=== PATIENT | male | born 1950 | race Caucasian/White ===

== ENCOUNTER → 2018-04-05 | Outpatient (CLI) | payer MEDICARE ==
--- NOTE | 2018-04-05 11:16 | CT ---
EXAMINATION TYPE: CT sinus wo con DATE OF EXAM: 04/05/2018 COMPARISON: None HISTORY: Chronic sinusitis CT DLP: 639 mGycm. Automated Exposure Control for Dose Reduction was Utilized. TECHNIQUE: CT scan of the sinuses is performed without contrast, axial images are obtained, coronal r eformatted images are also reviewed. FINDINGS: Left maxillary sinus shows some periosteal thickening. Ostiomeatal units are patent. No air -fluid levels. Bone mineralization is maintained. Orbits show symmetric appearance. Visualized portion of mastoid air cells show no abnormal opacification on the right, limited inflamma tory change in the left. The globes are intact bilaterally. 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
== END | disposition home or self-care (01) ==
LOC: RADCTMAIN 09:23
PROVIDERS: ATTEND Otolaryngology
DX: J32.9 Chronic sinusitis, unspecified (principal)
CPT/HCPCS: 70486

== ENCOUNTER → 2021-07-15 | Outpatient (CLI) | payer MEDICARE ==
--- NOTE | 2021-07-15 11:46 | XR ---
EXAMINATION TYPE: XR lumbar spine 3V AP view pelvis and 2 views left hip DATE OF EXAM: 07/15/2021 Comparison: None Clinical History: 71-year-old male M25.552 pain l hip Findings: Lumbar spine: Dextroconvex scoliotic curvature. Mild to moderate multilevel degenerative disc disease with disc bul ging and endplate spondylosis throughout. There appears to be a transitional lumbosacral segment richard sariah as a lumbarized S1. Facet arthropathy mid to lower lumbar spine. Vertebral body heights are prese rved and alignment is maintained. Pelvis and left hip: Mild marginal spurring at the bilateral hips appears relatively symmetrical. No acute fracture, sublu xation, dislocation. Pelvic phlebolith on the left. Impression: Lumbar spine: 1. A mild dextroconvex scoliosis of the lumbar spine. 2. 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 3. Mild to moderate multilevel degenerative disc disease. Facet arthropathy mid to lower lumbar spine . 4. No vertebral compression collapse or malalignment. Pelvis and left hip: 1. Similar mild degenerative spurring on both sides. 2. No acute osseous abnormality seen.
== END | disposition home or self-care (01) ==
LOC: RADXRMAIN 10:39
PROVIDERS: ATTEND Internal Medicine
DX: M51.36 Other intervertebral disc degeneration, lumbar region (principal); M46.96 Unspecified inflammatory spondylopathy, lumbar region
CPT/HCPCS: 72100; 73502

== ENCOUNTER 2023-02-12 23:54 | Observation (INO) | payer MEDICARE ==
--- NOTE | 2023-02-13 00:27 | XR ---
EXAMINATION TYPE: XR chest 2V DATE OF EXAM: 02/13/2023 COMPARISON: None INDICATION: Chest pain, short of breath TECHNIQUE: Frontal and lateral views of the chest are obtained. FINDINGS: The heart size is normal. The pulmonary vasculature is normal. The lungs are clear. There is elevation of the right diaphragm. IMPRESSION: 1. No acute pulmonary process.
--- NOTE | 2023-02-13 00:29 | ED ---
General Adult HPI - General Chief complaint: Shortness of Breath Stated complaint: Chest Pain,SOB Time Seen by Provider: 02/13/23 00:01 Source: patient, RN notes reviewed, old records reviewed Mode of arrival: wheelchair Limitations: no limitations - History of Present Illness Initial comments: 72-year-old male presenting for evaluation of cough and dyspnea. Patient has had a productive cough for the past several weeks. He was started on antibiotics 5 days prior, is azithromycin. He has failed to improve. He does associate some chest pain with this symptoms which is worse with cough. 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 He denies measured fever. Denies lower extremity pain or swelling. No prior history of asthma or COPD. - Related Data Allergies Allergy/AdvReac Type Severity Reaction Status Date / Time No Known Allergies Allergy Verified 02/13/23 00:01 Review of Systems ROS Statement: Those systems with pertinent positive or pertinent negative responses have been documented in the HPI. ROS Other: All systems not noted in ROS Statement are negative. Past Medical History Past Medical History: Atrial Fibrillation, CVA/TIA, Hypertension Additional Past Medical History / Comment(s): DVT History of Any Multi-Drug Resistant Organisms: None Reported Past Surgical History: No Surgical Hx Reported Past Psychological History: No Psychological Hx Reported Smoking Status: Never smoker Past Alcohol Use History: Daily Past Drug Use History: None Reported General Exam Limitations: no limitations General appearance: alert, in no apparent distress Head exam: Present: atraumatic, normocephalic Eye exam: Present: normal appearance, PERRL Neck exam: Present: normal inspection. Absent: tenderness, meningismus Respiratory exam: Present: rhonchi, decreased breath sounds, other (Wet cough). Absent: respiratory distress, wheezes, rales Cardiovascular Exam: Present: regular rate, normal rhythm GI/Abdominal exam: Present: soft. Absent: distended, tenderness, guarding Extremities exam: Present: normal inspection, normal capillary refill. Absent: calf tenderness Neurological exam: Present: alert, oriented X3, CN II-XII intact. Absent: motor sensory deficit Psychiatric exam: Present: normal affect, normal mood Skin exam: Present: warm, dry, intact. Absent: cyanosis, diaphoretic Course Vital Signs 02/12/23 02/13/23 02/13/23 23:57 00:11 00:32 Temperature 97.5 F L Pulse Rate 85 Respiratory 24 20 Rate Blood Pressure 126/72 O2 Sat by Pulse 88 L 91 L Oximetry 02/13/23 02/13/23 02/13/23 02:11 02:24 03:00 Temperature Pulse Rate 87 81 85 Respiratory 18 Rate Blood Pressure 127/67 O2 Sat by Pulse 97 93 L Oximetry Medical Decision Making - Medical Decision Making Was pt. sent in by a medical professional or institution (, PA, ADVANCED QUALITY ENGINEER, urgent care, hospital, or shelter...) When possible be specific @ -No Did you speak to anyone other than the patient for history (EMS, parent, family, police, friend...)? What history was obtained from this source @ -No Did you review nursing and triage notes (agree or disagree)? Why? @ -I reviewed and agree with nursing and triage notes Were old charts reviewed (outside hosp., previous admission, EMS record, old EKG, old radiological studies, urgent care reports/EKG's, shelter records)? Report findings @ -No old charts were reviewed Differential Diagnosis (chest pain, altered mental status, abdominal pain women, abdominal pain men, vaginal bleeding, weakness, fever, dyspnea, syncope, headache, dizziness, GI bleed, back pain, seizure, CVA, palpatations, mental health, musculoskeletal)? @ -[Differential Dyspnea: Coronary syndrome, arrhythmia, tamponade, asthma, COPD, pulmonary embolism, pneumonia, pneumothorax, pulmonary effusion, anaphylaxis, diabetic ketoacidosis, flailed chest, pulmonary contusion, diaphragmatic rupture, anemia, neuromuscular, this is not meant to be an all-inclusive list. EKG interpreted by me (3pts min.). @ -EKG: Sinus rhythm left axis deviation, rate of 82, MS interval 157, QRS duration 88, QTC 409, no ST segment elevation. X-rays interpreted by me (1pt min.). @ -Chest x-ray shows elevation of the right hemidiaphragm. CT interpreted by me (1pt min.). @ -CT angiography negative for PE but does show airspace disease consistent with pneumonia. U/S interpreted by me (1pt. min.). @ -None done What testing was considered but not performed or refused? (CT, X-rays, U/S, labs)? Why? @ -None What meds were considered but not given or refused? Why? @ -None Did you discuss the management of the patient with other professionals (professionals i.e. DrMaryana, PA, ADVANCED QUALITY ENGINEER, lab, RT, psych nurse, case management social worker, roll up guider operator, teacher, animal control officer, machine adjuster leader case trim)? Give summary @ -Dr. Armendariz Was smoking cessation discussed for >3mins.? @ -No Was critical care preformed (if so, how long)? @ -No Were there social determinants of health that impacted care today? How? (Homelessness, low income, unemployed, alcoholism, drug addiction, transportation, low edu. Level, literacy, decrease access to med. care, fci, rehab)? @ -No Was there de-escalation of care discussed even if they declined (Discuss DNR or withdrawal of care, Hospice)? DNR status @ -No What co-morbidities impacted this encounter? (DM, HTN, Smoking, COPD, CAD, Cancer, CVA, ARF, Chemo, Hep., AIDS, mental health diagnosis, sleep apnea, morbi d obesity)? @ Atrial fibrillation Was patient admitted / discharged? Hospital course, mention meds given and route, prescriptions, significant lab abnormalities, going to OR and other pertinent info. @ 72-year-old male with cough, dyspnea, clinical pneumonia. X-ray negative for focal airspace disease, no pneumothorax, mild leukocytosis. Otherwise laboratory testing is unremarkable. His INR is supratherapeutic, Coumadin will be held at this time. CT does show airspace disease consistent with pneumonia. Patient started on IV antibiotics, steroids, and nebulized albuterol. Undiagnosed new problem with uncertain prognosis? @ -No Drug Therapy requiring intensive monitoring for toxicity (Heparin, Nitro, Insulin, Cardizem)? @ -No Were any procedures done? @ -No Diagnosis/symptom? @ Pneumonia failed outpatient treatment, hypoxia Acute, or Chronic, or Acute on Chronic? @ -Acute Uncomplicated (without systemic symptoms) or Complicated (systemic symptoms)? @ -default Side effects of treatment? @ -No Exacerbation, Progression, or Severe Exacerbation? @ -No Poses a threat to life or bodily function? How? (Chest pain, USA, PR, pneumonia, PE, COPD, DKA, ARF, appy, cholecystitis, CVA, Diverticulitis, Homicidal, S uicidal, threat to staff... and all critical care pts) @ -yES, hypoxia, sepsis - Lab Data Result diagrams: 02/13/23 00:20 02/13/23 00:20 Lab Results 02/13/23 02/13/23 02/13/23 Range/Units 00:20 00:20 00:20 WBC 10.9 H (3.8-10.6) k/uL RBC 4.55 (4.30-5.90) m/uL Hgb 14.6 (13.0-17.5) gm/dL Hct 44.7 (39.0-53.0) % MCV 98.2 (80.0-100.0) fL MCH 32.0 (25.0-35.0) pg MCHC 32.6 (31.0-37.0) g/dL RDW 12.7 (11.5-15.5) % Plt Count 177 (150-450) k/uL MPV 9.3 Neutrophils % 78 % Lymphocytes % 13 % Monocytes % 5 % Eosinophils % 2 % Basophils % 0 % Neutrophils # 8.5 H (1.3-7.7) k/uL Lymphocytes # 1.5 (1.0-4.8) k/uL Monocytes # 0.5 (0-1.0) k/uL Eosinophils # 0.2 (0-0.7) k/uL Basophils # 0.0 (0-0.2) k/uL PT 43.0 H (9.0-12.0) sec INR 4.4 H (<1.2) APTT 28.4 (22.0-30.0) sec Sodium 136 L (137-145) mmol/L Potassium 3.9 (3.5-5.1) mmol/L Chloride 102 (98-107) mmol/L Carbon Dioxide 24 (22-30) mmol/L Anion Gap 10 mmol/L BUN 21 H (9-20) mg/dL Creatinine 0.98 (0.66-1.25) mg/dL Est GFR (CKD-EPI)AfAm 88 (>60 ml/min/1.73 sqM) Est GFR (CKD-EPI)NonAf 76 (>60 ml/min/1.73 sqM) Glucose 136 H (74-99) mg/dL Plasma Lactic Acid Delvis (0.7-2.0) mmol/L Calcium 9.2 (8.4-10.2) mg/dL Magnesium 1.9 (1.6-2.3) mg/dL Total Bilirubin 0.4 (0.2-1.3) mg/dL AST 36 (17-59) U/L ALT 36 (4-49) U/L Alkaline Phosphatase 42 (38-126) U/L Troponin I (0.000-0.034) ng/mL NT-Pro-B Natriuret Pep pg/mL Total Protein 6.7 (6.3-8.2) g/dL Albumin 3.9 (3.5-5.0) g/dL Influenza Type A (PCR) (Not Detectd) Influenza Type B (PCR) (Not Detectd) RSV (PCR) (Not Detectd) SARS-CoV-2 (PCR) (Not Detectd) 02/13/23 02/13/23 02/13/23 Range/Units 00:20 00:20 00:27 WBC (3.8-10.6) k/uL RBC (4.30-5.90) m/uL Hgb (13.0-17.5) gm/dL Hct (39.0-53.0) % MCV (80.0-100.0) fL MCH (25.0-35.0) pg MCHC (31.0-37.0) g/dL RDW (11.5-15.5) % Plt Count (150-450) k/uL MPV Neutrophils % % Lymphocytes % % Monocytes % % Eosinophils % % Basophils % % Neutrophils # (1.3-7.7) k/uL Lymphocytes # (1.0-4.8) k/uL Monocytes # (0-1.0) k/uL Eosinophils # (0-0.7) k/uL Basophils # (0-0.2) k/uL PT (9.0-12.0) sec INR (<1.2) APTT (22.0-30.0) sec Sodium (137-145) mmol/L Potassium (3.5-5.1) mmol/L Chloride (98-107) mmol/L Carbon Dioxide (22-30) mmol/L Anion Gap mmol/L BUN (9-20) mg/dL Creatinine (0.66-1.25) mg/dL Est GFR (CKD-EPI)AfAm (>60 ml/min/1.73 sqM) Est GFR (CKD-EPI)NonAf (>60 ml/min/1.73 sqM) Glucose (74-99) mg/dL Plasma Lactic Acid Delvis 1.7 (0.7-2.0) mmol/L Calcium (8.4-10.2) mg/dL Magnesium (1.6-2.3) mg/dL Total Bilirubin (0.2-1.3) mg/dL AST (17-59) U/L ALT (4-49) U/L Alkaline Phosphatase (38-126) U/L Troponin I <0.012 (0.000-0.034) ng/mL NT-Pro-B Natriuret Pep 141 pg/mL Total Protein (6.3-8.2) g/dL Albumin (3.5-5.0) g/dL Influenza Type A (PCR) (Not Detectd) Influenza Type B (PCR) (Not Detectd) RSV (PCR) (Not Detectd) SARS-CoV-2 (PCR) (Not Detectd) 02/13/23 Range/Units 00:27 WBC (3.8-10.6) k/uL RBC (4.30-5.90) m/uL Hgb (13.0-17.5) gm/dL Hct (39.0-53.0) % MCV (80.0-100.0) fL MCH (25.0-35.0) pg MCHC (31.0-37.0) g/dL RDW (11.5-15.5) % Plt Count (150-450) k/uL MPV Neutrophils % % Lymphocytes % % Monocytes % % Eosinophils % % Basophils % % Neutrophils # (1.3-7.7) k/uL Lymphocytes # (1.0-4.8) k/uL Monocytes # (0-1.0) k/uL Eosinophils # (0-0.7) k/uL Basophils # (0-0.2) k/uL PT (9.0-12.0) sec INR (<1.2) APTT (22.0-30.0) sec Sodium (137-145) mmol/L Potassium (3.5-5.1) mmol/L Chloride (98-107) mmol/L Carbon Dioxide (22-30) mmol/L Anion Gap mmol/L BUN (9-20) mg/dL Creatinine (0.66-1.25) mg/dL Est GFR (CKD-EPI)AfAm (>60 ml/min/1.73 sqM) Est GFR (CKD-EPI)NonAf (>60 ml/min/1.73 sqM) Glucose (74-99) mg/dL Plasma Lactic Acid Delvis (0.7-2.0) mmol/L Calcium (8.4-10.2) mg/dL Magnesium (1.6-2.3) mg/dL Total Bilirubin (0.2-1.3) mg/dL AST (17-59) U/L ALT (4-49) U/L Alkaline Phosphatase (38-126) U/L Troponin I (0.000-0.034) ng/mL NT-Pro-B Natriuret Pep pg/mL Total Protein (6.3-8.2) g/dL Albumin (3.5-5.0) g/dL Influenza Type A (PCR) Not Detected (Not Detectd) Influenza Type B (PCR) Not Detected (Not Detectd) RSV (PCR) Not Detected (Not Detectd) SARS-CoV-2 (PCR) Not Detected (Not Detectd) Disposition Clinical Impression: Community acquired pneumonia, Hypoxia Disposition: ADMITTED IP TO THIS HOSP Condition: Stable Time of Disposition: 03:23
[2023-02-13 00:49] LABS: Basophils % (A) 0 %; Eosinophils # (A) 0.2 k/uL (0-0.7); Eosinophils % (A) 2 %; HCT 44.7 % (39.0-53.0); HGB 14.6 gm/dL (13.0-17.5); Lymphocytes # (A) 1.5 k/uL (1.0-4.8); Lymphocytes % (A) 13 %; MCHC 32.6 g/dL (31.0-37.0); MCV 98.2 fL (80.0-100.0); Mean Platelet Volume 9.3; Monocytes # (A) 0.5 k/uL (0-1.0); Monocytes % (A) 5 %; Neutrophils # (A) 8.5 k/uL (1.3-7.7); Neutrophils % (A) 78 %; Platelet Count 177 k/uL (150-450); RBC 4.55 m/uL (4.30-5.90); RDW 12.7 % (11.5-15.5); WBC 10.9 k/uL (3.8-10.6)
[2023-02-13 00:59] LABS: INR 4.4 (<1.2); Partial Thromboplastin Time 28.4 sec (22.0-30.0)
[2023-02-13 01:06] LABS: Albumin 3.9 g/dL (3.5-5.0); Calcium 9.2 mg/dL (8.4-10.2); Magnesium 1.9 mg/dL (1.6-2.3); Potassium 3.9 mmol/L (3.5-5.1); Total Bilirubin 0.4 mg/dL (0.2-1.3); Total Protein 6.7 g/dL (6.3-8.2)
[2023-02-13] MEDS ORDERED: AZITHROMYCIN 500 MG in SODIUM CHLORIDE 0.9% 250 ML IVPB STA (01:35)
[2023-02-13] MEDS ORDERED: methylPREDNISolone SOD SUCCI 125 MG/2 ML VIAL IV STA (01:36)
[2023-02-13] MEDS ORDERED: ALBUTEROL NEBULIZED 2.5 MG/3 ML INHALATION STA (01:36)
[2023-02-13] MEDS ORDERED: IPRATROPIUM-ALBUTEROL 3 ML NEB INHALATION STA (01:36)
[2023-02-13] MEDS ORDERED: NALOXONE 0.4 MG/ML 1 ML VIAL IV PRN (01:39)
[2023-02-13] MEDS ORDERED: ACETAMINOPHEN TAB 325 MG TAB PO PRN (01:39)
[2023-02-13] MEDS: SODIUM CHLORIDE 0.9% 1,000 ML IV SCH ×3 (02:24→23:53)
[2023-02-13] MEDS ORDERED: LORazepam 2 MG/ML INJ IV PRN ×3 (02:54)
[2023-02-13] MEDS ORDERED: THIAMINE 100 MG/ML 2 ML VIAL IM STA (02:54)
--- NOTE | 2023-02-13 03:16 | CT ---
EXAM: CT Angiography Chest With Intravenous Contrast CLINICAL HISTORY: ITS.REASON CT Reason: KARO TECHNIQUE: Axial computed tomographic angiography images of the chest with intravenous contrast. CTDI is 29 mGy and DLP is 919.6 mGy-cm. This CT exam was performed using one or more of the following dose reduction techniques: automated exposure control, adjustment of the mA and/or kV according to patient size, and/or use of iterative reconstruction technique. 2D MIP reconstructed images were created and reviewed. COMPARISON: No relevant prior studies available. FINDINGS: Limitations: Exam severely limited secondary to patient respiratory motion. Pulmonary arteries: This precludes evaluation of the subsegmental pulmonary arteries. No large central pulmonary embolus is present. Aorta: No acute findings. No thoracic aortic aneurysm. Lungs: Patchy interstitial infiltrates within the right upper and to a lesser extent right lower lobes . No mass. Pleural space: Unremarkable. No significant effusion. No pneumothorax. Heart: Unremarkable. No cardiomegaly. No significant pericardial effusion. No evidence of RV dysfunction. Bones/joints: No acute fracture. No dislocation. Soft tissues: fatty infiltration of the liver. Lymph nodes: Unremarkable. No enlarged lymph nodes. Kidneys and ureters: 2.1 cm left renal cyst. IMPRESSION: Limited exam as described above. No large central pulmonary embolus Reducers were infiltrated with of the right lobe likely infectious or inflammatory etiology.
[2023-02-13] MEDS: ALBUTEROL NEBULIZED 2.5 MG/3 ML INHALATION SCH ×3 (06:22→11:07)
[2023-02-13] MEDS: methylPREDNISolone SOD SUCCI 125 MG/2 ML VIAL IV SCH ×3 (08:12→23:52)
[2023-02-13] MEDS: IPRATROPIUM-ALBUTEROL 3 ML NEB INHALATION SCH ×3 (11:29→19:18)
--- NOTE | 2023-02-13 12:33 | P.CNPUL ---
History of Present Illness Consult date: 02/13/23 Requesting physician: Uche Armendariz Reason for consult: dyspnea, cough, pneumonia, abnormal CXR/CT Chief complaint: Shortness of breath and cough. History of present illness: Pulmonary consult dated 02/13/2023. 72-year-old male who presents to the emergency department on February 12, complaining of shortness of breath and cough. She has been going on for 2 weeks, and has been progressive. The patient states that he is producing a small amount of yellow phlegm. There is no fever or chills. There is no chest pain or chest discomfort. The patient does have a previous history of hypertension, pulmonary embolism, CVA, and DVT. He did smoke for about 10 years, many years back. 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 The patient had a chest x-ray that was normal. A CAT scan was done, and was negative for pulmonary embolism, but did show some very mild perihilar infiltrate. Hence, the patient was admitted for diagnosis of pneumonia. He is currently on azithromycin, and Rocephin. He's not requ iring any oxygen. He's not getting any IV fluids. White count 10.9, with a normal hemoglobin, hematocrit, and platelet count. PT 43, INR 4.4. Sodium 136, potassium 3.9, chlorides 102, CO2 24, BUN 21, and creatinine 0.98. N-terminal proBNP was normal. Troponin was negative. Testing for influenza A, influenza B, as well as respiratory syncytial virus, and coronavirus were negative. I've added a pro-calcitonin level. Review of Systems REVIEW OF SYSTEMS: CONSTITUTIONAL: [Negative.] NEUROLOGIC: [ Negative.] HEENT: [ Negative.] CARDIAC: [Negative.] PULMONARY: Shortness of breath, cough, and minimal yellow phlegm production. GI: [Negative.] : [Negative.] RHEUMATOLOGIC: [ Negative.] IMMUNOLOGIC: [ Negative.] ENDOCRINE: [Negative. ] DERMATOLOGIC: [Negative.] Past Medical History Past Medical History: Atrial Fibrillation, CVA/TIA, Hypertension Additional Past Medical History / Comment(s): DVT History of Any Multi-Drug Resistant Organisms: None Reported Past Surgical History: No Surgical Hx Reported Past Psychological History: No Psychological Hx Reported Smoking Status: Never smoker Past Alcohol Use History: Daily Past Drug Use History: None Reported Medications and Allergies Allergies Allergy/AdvReac Type Severity Reaction Status Date / Time No Known Allergies Allergy Verified 02/13/23 00:01 Physical Exam Osteopathic Statement: *. No significant issues noted on an osteopathic structural exam other than those noted in the History and Physical/Consult. Vitals: Vital Signs Temp Pulse Pulse Resp BP BP Pulse Ox 02/13/23 11:16 80 02/13/23 11:07 80 02/13/23 07:44 99.2 F 98 17 120/71 94 L 02/13/23 06:29 79 02/13/23 06:23 96 02/13/23 06:22 74 02/13/23 05:56 88 18 132/67 96 02/13/23 03:00 85 18 127/67 93 L 02/13/23 02:24 81 02/13/23 02:11 87 97 02/13/23 00:32 91 L 02/13/23 00:11 20 02/12/23 23:57 97.5 F L 85 24 126/72 88 L Intake and Output 02/12/23 02/13/23 02/13/23 22:59 06:59 14:59 Other: Weight 113.398 kg No acute distress, oriented 3. No conversational dyspnea or use of accessory muscles. Currently on room air. HEENT examination is grossly unremarkable. Neck supple. Full range of motion. No adenopathy thyromegaly or neck vein distention. Cardiovascular examination reveals regular rhythm rate. S1-S2 normal. No S3 or S4. No discernible murmur noted. Heart rate 80 bpm. Lungs reveal very mild scattered rhonchi. No wheezes or crackles. Breath sounds equal bilaterally. Room air saturation 95%. Abdomen soft bowel sounds are heard. No masses or tenderness. Extremities are intact. No cyanosis clubbing or edema. Skin is without rash or lesion. Neurologic examination is brief but nonfocal. Results - Laboratory Findings CBC and BMP: 02/13/23 00:20 02/13/23 00:20 PT/INR, D-dimer PT 43.0 sec (9.0-12.0) H 02/13/23 00:20 INR 4.4 (<1.2) H 02/13/23 00:20 Abnormal lab findings: Abnormal Labs 02/13/23 02/13/23 02/13/23 00:20 00:20 00:20 WBC 10.9 H Neutrophils # 8.5 H PT 43.0 H INR 4.4 H Sodium 136 L BUN 21 H Glucose 136 H - Diagnostic Findings Chest x-ray: image reviewed CT scan - chest: image reviewed Assessment and Plan Assessment: Right-sided, community-acquired pneumonia. History of atrial fibrillation. She of CVA. History of deep venous thrombosis. History of hypertension. Remote history of tobacco use. Plan: Plan dated 02/13/2023. The patient was admitted with a diagnosis of pneumonia. He was placed on azithromycin and Rocephin. This is standard treatment for community acquired pneumonia. The patient's also on breathing treatments. He was placed on Solu- Medrol 60 mg every 8 hours. We will continue to follow. A pro-calcitonin level was ordered. Prognosis is thought to be generally good. Time with Patient: Greater than 30
[2023-02-13] MEDS ORDERED: EZETIMIBE 10 MG TAB PO SCH ×2 (13:45→21:00)
[2023-02-13] MEDS ORDERED: NON FORMULARY DRUG (Rosuvastatin 20 MG Tablet) PO SCH (13:45)
[2023-02-13] MEDS: FLUoxetine HCL 20 MG CAP PO SCH (14:07)
[2023-02-13] MEDS: amLODIPine 5 MG TAB PO SCH (14:07)
[2023-02-13] MEDS: LEVOTHYROXINE 100 MCG TAB PO SCH (14:07)
[2023-02-13] MEDS: lisinopriL 20 MG TAB PO SCH (14:07)
--- NOTE | 2023-02-13 14:30 | P.HPIM ---
History of Present Illness H&P Date: 02/13/23 HISTORY OF PRESENT ILLNESS: This is a 72-year-old male with a previous medical history significant for hypertension and hypertensive cardiovascular disease, hyperlipidemia, hypothyroidism, vitamin D deficiency, history of chronic DVT of the left lower extremity, history of CVA, anxiety disorder, depressive disorder, patient developed to have a significant upper respiratory tract infection about a week ago when he was started on oral antibiotic as an outpatient, however patient became quite short of breath ended up coming to the emergency department at [facility] yesterday with increased coughing and shortness breath, his oxygen was around 88% at that time, but because of the presentation he had a chest x-ray did not show evidence of acute of normalities, however the patient was started on IV Solu-Medrol mg IV push every 6 hours, he was placed on IV anabiotic Rocephin and Zithromax and he was admitted to the hospital for evaluation by pulmonary medicine DUD[place] .W OF SYSTEMS: Constitutional: No documented fever, no chills, no night sweats. No weight change. No weakness, fatigue or lethargy. No daytime sleepiness. EENT: No headache. No blurred vision or double vision, no loss of vision. No loss of Hearing, no ringing in the ears, no dizziness. No nasal drainage or congestion. No epistaxis. No sore throat. Lungs: No shortness of breath, no cough, no sputum production. No wheezing. Reports dyspnea with activity. Cardiovascular: No chest pain, no lower extremity edema. No palpitations. No paroxysmal nocturnal dyspnea. No orthopnea. No lightheadedness or dizziness. No syncopal episodes. Abdominal: Reports abdominal pain. No nausea, vomiting. No diarrhea. No constipation. No bloody or tarry stools reports loss of appetite. Genitourinary: No dysuria, increased frequency, urgency. No urinary retention. Musculoskeletal: No myalgias. No muscle weakness, no gait dysfunction, no frequent falls. No back pain. No neck pain. Integumentary: No wounds, no lesions. No rash or pruritus. No unusual bruising. No change in hair or nails. Neurologic: No aphasia. No facial droop. No change in mentation. No head injury. No headache. No paralysis. No paresthesia. Psychiatric: No depression. No anxiety. No mood swings. Endocrine: No abnormal blood sugars. No weight change. PAST MEDICAL HISTORY: hypertension and hypertensive cardiovascular disease. hyperlipidemia. Anxiety disorder. Depression. Hypothyroidism. Chronic DVT to the left lower extremity CVA. Vitamin D deficiency PAST SURGICAL HISTORY: sinus been noting 2018 Colonoscopy 2011 SOCIAL HISTORY: she used to smoke about pack every day since the age of 16 and he quit at 25-year-old, he drinks occasionally he denies any drug use or abuse. FAMILY HISTORY: father at age 53 from abdominal aortic aneurysm mother at age 96 from old age and she had history of atrial fibrillation and heart failure patient had 2 sisters one from sepsis at the age of 71 and the other one is alive and well patient has one daughter no major medical problems PHYSICAL EXAMINATION: General: 72-year-old male sitting up in bed in no distress. HEENT: Head is atraumatic, normocephalic, pupils were equal round reactive to light and recommendation, extraocular muscle movement were intact, sclera nonicteric, conjunctivae were pale, mucous membranes of the mouth are somewhat dry. Neck: Supple, no JVP, normal carotid upstroke bilaterally, no lymphadenopathy. Chest: Decreased breath sounds at the bases, few rhonchi, no extremity wheezes, no chest wall tenderness, no intercostal retractions. Heart: First heart sound is normal, second heart sounds normal Abdomen: Soft, nontender, nondistended, positive bowel sounds. Extremities: There is no edema no calf tenderness DP +2 bilaterally. Neurologic examination: Patient is awake alert and oriented ?-3, cranial nerves II-12 appear grossly intact, muscle power were 5 out of 5 in upper extremities and 5 out of 5 in bilateral lower extremities, deep tendon reflexes normal bilaterally. ASSESSMENT AND PLAN: 1. Acute interstitial pneumonia right more than left. Continue Solu-Medrol 60 mg IV push every 8 hours, continue DuoNeb 3 mL nebulization 4 times every day, continue Pulmicort 4 mg position twice every day, continue Rocephin 1 g IV piggyback once every day, continue Zithromax 500 mg IV piggyback every 24 hours, urine Legionella Ag and Mycoplasma AB IgG and IgM, continue oxygen support 2. Mixed hyperlipidemia. Continue patient on Rosuvastatin 20 mg daily and Zetia 10 mg po daily. 3. paroxysmal atrial fibrillation. Continue Coumadin keep INR 2-3. 4. History of CVA. Continue patient on aspirin 81 mg once every day, rosuvastatin 20 mg per day, Wednesday at 10 mg once every day for second her stroke prevention. 5. Hypertension and hypertensive cardiovascular disease. Continue patient on lisinopril 20 mg orally once every day, continue amlodipine 5 mg orally once ahsan ry day, monitor the patient blood pressure very closely. 6. Hypothyroidism. Continue patient on levothyroxine 88 g once every day. 7. Chronic DVT of the left lower extremity. Hold Coumadin because of Coagulopathy. 8. Anxiety disorder. Continue patient on fluoxetine 20 mg orally once every day, continue Xanax 0.5 mg orally twice every day as needed. 9. Vitamin D deficiency. Continue patient on vitamin D3 5000 units once every day. 10. DVT prophylaxis. Continue Coumadin to keep his INR between 2-3 11. GI prophylaxis. Continue Protonix 40 mg orally once every day. 12. Admit to inpatient. Estimated length of stay 2 midnights. 13. Patient is full code. Past Medical History Past Medical History: Atrial Fibrillation, CVA/TIA, Hypertension Additional Past Medical History / Comment(s): DVT History of Any Multi-Drug Resistant Organisms: None Reported Past Surgical History: No Surgical Hx Reported Past Psychological History: No Psychological Hx Reported Smoking Status: Never smoker Past Alcohol Use History: Daily Past Drug Use History: None Reported Medications and Allergies Home Medications Medication Instructions Recorded Confirmed Type Azithromycin [Zithromax Z Pack] See Taper PO DAILY 02/13/23 02/13/23 History Ezetimibe [Zetia] 10 mg PO DAILY 02/13/23 02/13/23 History FLUoxetine HCL [PROzac] 20 mg PO DAILY 02/13/23 02/13/23 History Levothyroxine Sodium [Synthroid] 100 mcg PO DAILY 02/13/23 02/13/23 History Rosuvastatin [Crestor] 20 mg PO DAILY 02/13/23 02/13/23 History Warfarin [Coumadin] 2.5 mg PO DAILY 02/13/23 02/13/23 History amLODIPine [Norvasc] 5 mg PO DAILY 02/13/23 02/13/23 History lisinopriL [Zestril] 20 mg PO DAILY 02/13/23 02/13/23 History Allergies Allergy/AdvReac Type Severity Reaction Status Date / Time No Known Allergies Allergy Verified 02/13/23 13:55 Physical Exam Vitals: Vital Signs Temp Pulse Pulse Resp BP BP Pulse Ox 02/13/23 07:44 99.2 F 98 17 120/71 94 L 02/13/23 06:29 79 02/13/23 06:23 96 02/13/23 06:22 74 02/13/23 05:56 88 18 132/67 96 02/13/23 03:00 85 18 127/67 93 L 02/13/23 02:24 81 02/13/23 02:11 87 97 02/13/23 00:32 91 L 02/13/23 00:11 20 02/12/23 23:57 97.5 F L 85 24 126/72 88 L Intake and Output 02/12/23 02/13/23 02/13/23 22:59 06:59 14:59 Other: Weight 113.398 kg Results CBC & Chem 7: 02/13/23 00:20 02/13/23 00:20 Labs: Abnormal Lab Results - Last 24 Hours (Table) 02/13/23 02/13/23 02/13/23 Range/Units 00:20 00:20 00:20 WBC 10.9 H (3.8-10.6) k/uL Neutrophils # 8.5 H (1.3-7.7) k/uL PT 43.0 H (9.0-12.0) sec INR 4.4 H (<1.2) Sodium 136 L (137-145) mmol/L BUN 21 H (9-20) mg/dL Glucose 136 H (74-99) mg/dL Thrombosis Risk Factor Assmnt - Choose All That Apply Each Risk Factor Represents 2 Points: Age 61-74 years Thrombosis Risk Factor Assessment Total Risk Factor Score: 2 Thrombosis Risk Factor Assessment Level: Low Risk
[2023-02-13] MEDS: BUDESONIDE 1 MG/2 ML NEBU INHALATION SCH (19:18)
[2023-02-13] MEDS ORDERED: NON FORMULARY DRUG (Rosuvastatin 20 MG) PO SCH (21:00)
[2023-02-14] MEDS: LEVOTHYROXINE 100 MCG TAB PO SCH (06:08)
--- NOTE | 2023-02-14 07:51 | P.PN ---
Subjective Progress Note Date: 02/14/23 72-year-old male who presents to the emergency department on February 12, complaining of shortness of breath and cough. She has been going on for 2 weeks, and has been progressive. The patient states that he is producing a small amount of yellow phlegm. There is no fever or chills. There is no chest pain or chest discomfort. The patient does have a previous history of hypertension, pulmonary embolism, CVA, and DVT. He did smoke for about 10 years, many years back. 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 The patient had a chest x-ray that was normal. A CAT scan was done, and was negative for pulmonary embolism, but did show some very mild perihilar infiltrate. Hence, the patient was admitted for diagnosis of pneumonia. He is currently on azithromycin, and Rocephin. He's not requiring any oxygen. He's not getting any IV fluids. White count 10.9, with a normal hemoglobin, hematocrit, and platelet count. PT 43, INR 4.4. Sodium 136, potassium 3.9, chlorides 102, CO2 24, BUN 21, and creatinine 0.98. N-terminal proBNP was normal. Troponin was negative. Testing for influenza A, influenza B, as well as respiratory syncytial virus, and coronavirus were negative. I've added a pro-calcitonin level. The patient is seen today 02/14/2023 in follow-up on the regular medical floor. He is currently sitting up at the bedside. Awake and alert in no acute distress. Maintaining good O2 saturations in the 90s on room air. He is coughing congestion. His pro-calcitonin was negative at 0.04. He is continued on DuoNeb inhalations, IV Solu-Medrol, Pulmicort inhalations. Antibiotics in the form of ceftriaxone and azithromycin. Objective - Vital Signs Vital signs: Vital Signs Temp 98.1 F 02/14/23 02:00 Pulse 65 02/14/23 02:00 Resp 17 02/14/23 02:00 BP 96/61 02/14/23 02:00 Pulse Ox 97 02/14/23 02:00 FiO2 Intake & Output 02/13/23 02/14/23 02/14/23 18:59 06:59 18:59 Other: # Voids 2 1 - Exam GENERAL EXAM: Alert, active, very pleasant 72-year-old male, on room air, comfortable in no apparent distress. HEAD: Normocephalic. EYES: Normal reaction of pupils, equal size. NOSE: Clear with pink turbinates. THROAT: No erythema or exudates. NECK: No masses, no JVD. CHEST: No chest wall deformity. LUNGS: Equal air entry with no crackles, wheeze, rhonchi or dullness. CVS: S1 and S2 normal with no audible murmur, regular rhythm. ABDOMEN: No hepatosplenomegaly, normal bowel sounds, no guarding or rigidity. SPINE: No scoliosis or deformity SKIN: No rashes CENTRAL NERVOUS SYSTEM: No focal deficits, tone is normal in all 4 extremities. EXTREMITIES: There is no peripheral edema. No clubbing, no cyanosis. Peripheral pulses are intact. - Labs CBC & Chem 7: 02/13/23 00:20 02/13/23 00:20 Assessment and Plan Assessment: Right-sided, community-acquired pneumonia. Most likely viral versus tracheobronchitis. Pro-calcitonin 0.04. History of atrial fibrillation. She of CVA. History of deep venous thrombosis. History of hypertension. Remote history of tobacco use. Plan: The patient was seen and evaluated Improved and back to his baseline Cleared for discharge from pulmonary standpoint Procalcitonin was 0.04. Complete a short course of antibiotics Complete a short course of prednisone I have personally seen and examined the patient, performed the documentation and the assessment and plan as written. Number of minutes spent on the visit: 10.
[2023-02-14] MEDS: BUDESONIDE 1 MG/2 ML NEBU INHALATION SCH (08:25)
[2023-02-14] MEDS: IPRATROPIUM-ALBUTEROL 3 ML NEB INHALATION SCH ×2 (08:25→12:09)
[2023-02-14 08:36] VITALS: BP 112/72; PULSE 67; RESP 16; TEMP 98.2
[2023-02-14] MEDS: lisinopriL 20 MG TAB PO SCH (08:54)
[2023-02-14] MEDS: amLODIPine 5 MG TAB PO SCH (08:54)
[2023-02-14] MEDS: FLUoxetine HCL 20 MG CAP PO SCH (08:54)
[2023-02-14] MEDS: methylPREDNISolone SOD SUCCI 125 MG/2 ML VIAL IV SCH (08:55)
[2023-02-14] MEDS ORDERED: THIAMINE 100 MG TAB PO SCH (09:00)
[2023-02-14] MEDS ORDERED: AZITHROMYCIN 500 MG in SODIUM CHLORIDE 0.9% 250 ML IVPB SCH (09:00)
[2023-02-14 09:20] LABS: African American GFR (CKD) 85.6 (60.0-200.0); Albumin 3.7 g/dL (3.8-4.9); Albumin/Globulin Ratio 1.68 (1.60-3.17); Anion Gap 7.9 mmol/L (10.00-18.00); BUN/Creat Ratio 21.6 Ratio (12.00-20.00); Blood Urea Nitrogen 21.6 mg/dL (9.0-27.0); Calcium 9.5 mg/dL (8.7-10.3); Carbon Dioxide 23.1 mmol/L (20.0-27.5); Globulin 2.2 g/dL (1.6-3.3); Non-African American GFR(CKD) 73.8 (60.0-200.0); Potassium 5.5 mmol/L (3.5-5.5); Total Bilirubin 0.3 mg/dL (0.30-1.20); Total Protein 5.9 g/dL (6.2-8.2)
[2023-02-14 10:05] LABS: INR 5.23 (0.90-1.11); Prothrombin Time 55.5 sec (9.9-11.9)
[2023-02-14] MEDS ORDERED: predniSONE 20 MG TAB PO SCH (11:00)
[2023-02-14 11:21] LABS: Basophils # (A) 0.02 X 10*3/uL (0.00-0.10); Basophils % (A) 0.1 %; Eosinophils # (A) 0 X 10*3/uL (0.04-0.35); Eosinophils % (A) 0 %; HCT 39.9 % (39.6-50.0); HGB 12.8 g/dL (13.0-17.0); Lymphocytes # (A) 0.62 X 10*3/uL (0.90-5.00); Lymphocytes % (A) 3.5 %; MCH 31.6 pg (27.0-32.0); MCHC 32.1 g/dL (32.0-37.0); MCV 98.5 fL (80.0-97.0); Mean Platelet Volume 12.8 fL (9.5-12.2); Monocytes # (A) 0.34 X 10*3/uL (0.20-1.00); Monocytes % (A) 1.9 %; NRBC Per 100 WBC 0 /100 WBCS (0.0-0.0); Neutrophils % (A) 93.5 %; Platelet Count 151 X 10*3/uL (140-440); RBC 4.05 X 10*6/uL (4.40-5.60); RDW 12.9 % (11.5-14.5); WBC 17.96 X 10*3/uL (4.50-10.00)
--- NOTE | 2023-02-14 12:03 | P.DS ---
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, history of CVA, anxiety disorder, depressive disorder, patient developed to have a significant upper respiratory tract infection about a week ago when he was started on oral antibiotic as an outpatient, however patient became quite short of breath ended up coming to the emergency department at [facility] yesterday with increased coughing and shortness breath, his oxygen was around 88% at that time, but because of the presentation he had a chest x-ray did not show evidence of acute of normalities, however the patient was started on IV Solu-Medrol mg IV push every 6 hours, he was placed on IV anabiotic Rocephin and Zithromax and he was admitted to the hospital for evaluation by pulmonary medicine 02/14: Patient is feeling better today, his calcitonin level is negative, his chest x-ray showed interstitial patchy for treatment in the right more than left suggestive of community-acquired pneumonia, patient did receive 2 doses of Zithromax and one dose of Rocephin we will start the patient on oral Zithromax 500 mg orally once every day for 2 more days. Discontinue Solu-Medrol and start the patient on tapering dose of prednisone. Follow up with us as an outpatient in one week, keep off Coumadin for the next 2 days. Check INR on Wednesday discharge diagnoses : 1. Acute interstitial pneumonia right more than left. Continue 2. Mixed hyperlipidemia. 3. paroxysmal atrial fibrillation. 4. History of CVA. 5. Hypertension and hypertensive cardiovascular disease. 6. Hypothyroidism. 7. Chronic DVT of the left lower extremity. 8. Anxiety disorder. 9. Vitamin D deficiency. 10. Coagulopathy due to drug drug interaction Patient Condition at Discharge: Stable Plan - Discharge Summary New Discharge Prescriptions: New Cefuroxime [Ceftin] 250 mg PO BID 3 Days #6 tab predniSONE [Deltasone] 40 mg PO DAILY #11 tab Continue Levothyroxine Sodium [Synthroid] 100 mcg PO DAILY lisinopriL [Zestril] 20 mg PO DAILY Rosuvastatin [Crestor] 20 mg PO DAILY Ezetimibe [Zetia] 10 mg PO DAILY FLUoxetine HCL [PROzac] 20 mg PO DAILY amLODIPine [Norvasc] 5 mg PO DAILY Warfarin [Coumadin] 2.5 mg PO DAILY #0 Discontinued Azithromycin [Zithromax Z Pack] See Taper PO DAILY Discharge Medication List Ezetimibe [Zetia] 10 mg PO DAILY 02/13/23 [History] FLUoxetine HCL [PROzac] 20 mg PO DAILY 02/13/23 [History] Levothyroxine Sodium [Synthroid] 100 mcg PO DAILY 02/13/23 [History] Rosuvastatin [Crestor] 20 mg PO DAILY 02/13/23 [History] amLODIPine [Norvasc] 5 mg PO DAILY 02/13/23 [History] lisinopriL [Zestril] 20 mg PO DAILY 02/13/23 [History] Cefuroxime [Ceftin] 250 mg PO BID 3 Days #6 tab 02/14/23 [Rx] Warfarin [Coumadin] 2.5 mg PO DAILY #0 02/14/23 [Rx] predniSONE [Deltasone] 40 mg PO DAILY #11 tab 02/14/23 [Rx] Follow up Appointment(s)/Referral(s): Uche Armendariz MD [Primary Care Provider] - 1-2 days Discharge Disposition: HOME SELF-CARE
[2023-02-15] MEDS ORDERED: AZITHROMYCIN 500 MG TAB PO SCH (09:00)
[2023-02-18 02:31] LABS: Mycoplasma IgG Antibody (EIA) 2.92 INDEX (<=0.90); Mycoplasma IgM Antibody 0.42 INDEX (<=0.90)
== END 2023-02-14 12:31 | disposition home or self-care (01) ==
LOC: EC 23:54 → 6NMEDSUR 02-13 01:40
PROVIDERS: ADMIT Internal Medicine; ATTEND Internal Medicine
DX: J84.9 Interstitial pulmonary disease, unspecified (principal); E78.5 Hyperlipidemia, unspecified; I48.0 Paroxysmal atrial fibrillation; Z86.73 Personal history of transient ischemic attack (TIA), and cerebral infarction without residual deficits; I11.9 Hypertensive heart disease without heart failure; E03.9 Hypothyroidism, unspecified; I82.5Z2 Chronic embolism and thrombosis of unspecified deep veins of left distal lower extremity; F41.9 Anxiety disorder, unspecified; F32.A Depression, unspecified; E55.9 Vitamin D deficiency, unspecified; D68.9 Coagulation defect, unspecified; Z87.891 Personal history of nicotine dependence; Z82.49 Family history of ischemic heart disease and other diseases of the circulatory system; Z98.890 Other specified postprocedural states; Z79.01 Long term (current) use of anticoagulants; Z79.890 Hormone replacement therapy; Z79.52 Long term (current) use of systemic steroids; Z79.899 Other long term (current) drug therapy
CPT/HCPCS: 96376 ×2; 96366 ×2; 96365; 96367; 96375; 99285; 36415; 94640; 93005; 86738 ×2; 83880; 80053 ×2; 87449; 83605; 83735; 84484; 85025 ×2; 85610 ×2; 85730; 87040; 84145; 87636; 71046; 71275; G0378 ×2; J2930 ×2; J0456 ×2; J0696; J7512; Q9967; 96368

== ENCOUNTER 2023-06-09 08:49 | Day surgery (SDC) | payer MEDICARE ==
[2023-06-07 13:33] VITALS: BMI 31.2
[~2023-06-09 08:49] MED LIST: LACTATED RINGERS 1,000 ML IV SCH; LIDOCAINE 1% (10MG/ML) FOR IV START INTRADERMA PRN
[2023-06-09 09:27] VITALS: RESP 16; TEMP 97.3
[2023-06-09] MEDS ORDERED: PROPOFOL 10 MG/ML 20 ML VIAL IV ONE (09:30)
--- NOTE | 2023-06-09 09:46 | P.PCN ---
Date of Procedure: 06/09/23 Procedure(s) Performed: BRIEF HISTORY: Patient is a 73-year-old pleasant white male scheduled for an elective colonoscopy as a part of screening for colon cancer. PROCEDURE PERFORMED: Colonoscopy with snare polypectomy. PREOPERATIVE DIAGNOSIS: Screening for colon cancer. IV sedation per Anesthesia. PROCEDURE: After informed consent was obtained, the patient, was brought into the endoscopy unit. IV sedation was administered by Anesthesia under continuous monitoring. Digital rectal examination was normal. Initially the Olympus CF-160 flexible video colonoscope was then inserted in the rectum, gradually advanced into the cecum without any difficulty. Careful examination was performed as the scope was gradually being withdrawn. Ileocecal valve and the appendiceal orifice were visualized and appeared normal. Prep was excellent. Mucosa of the cecum, appeared normal. In the ascending colon there was a 7 mm polyp removed by snare polypectomy. Rest of the ascending colon, transverse colon, descending colon, sigmoid colon, and rectum appeared normal. Retroflexion was performed in the rectum and no lesions were seen. The patient tolerated the procedure well. IMPRESSION: 7 mm ascending colon polyp status post polypectomy Rest of the colon appeared normal RECOMMENDATIONS: Findings of this examination were discussed with the patient as well as his family. He was advised to follow with the biopsy results. If the biopsy results adenoma he can have a repeat colonoscopy in 5 years.
[2023-06-09 10:14] VITALS: BP 128/74; PULSE 57
== END 2023-06-09 10:21 | disposition home or self-care (01) ==
LOC: ORWHC2ENDO 08:49
PROVIDERS: ATTEND Internal Medicine Gastroenterology
DX: Z12.11 Encounter for screening for malignant neoplasm of colon (principal); D12.2 Benign neoplasm of ascending colon; I10 Essential (primary) hypertension; E78.5 Hyperlipidemia, unspecified; I48.91 Unspecified atrial fibrillation; I63.9 Cerebral infarction, unspecified; Z86.718 Personal history of other venous thrombosis and embolism; Z79.899 Other long term (current) drug therapy
CPT/HCPCS: 88305; 45385; J2704

== ENCOUNTER → 2023-09-10 | Outpatient (CLI) | payer MEDICARE ==
--- NOTE | 2023-09-10 15:03 | XR ---
EXAMINATION TYPE: XR chest 2V DATE OF EXAM: 09/10/2023 COMPARISON: NONE HISTORY: Cough and flulike symptoms. TECHNIQUE: Frontal and lateral views of the chest are obtained. FINDINGS: There is elevation of the right diaphragm. The lungs are clear. The cardiac silhouette and pulmonary vessels otherwise appear within normal limits. IMPRESSION: No acute cardiopulmonary process with elevated right diaphragm.
== END | disposition home or self-care (01) ==
LOC: RADXRMAIN 14:35
PROVIDERS: ATTEND Internal Medicine
DX: J98.6 Disorders of diaphragm (principal); R05.1 Acute cough
CPT/HCPCS: 71046

== ENCOUNTER → 2024-04-27 | Outpatient (CLI) | payer MEDICARE ==
--- NOTE | 2024-05-26 21:31 | US ---
Site ID [facility] Patient Joon Ortiz ID [id number] Age/Gender: 73Y, M Order # N/A Procedure US carotid duplex BILAT Date 04/27/2024 11:40:00 AM EXAMINATION TYPE: US carotid duplex BILAT DATE OF EXAM: 05/14/2024 COMPARISON: None, please note PACS Production downtime occurred during the radiologist interpretation of these images with limited priors/reports. CLINICAL INDICATION: Male, 73 year old with history of stenosis. TECHNIQUE: Carotid duplex ultrasound examination. Indirect Doppler criteria was utilized. FINDINGS: EXAM MEASUREMENTS: RIGHT: Peak Systolic Velocity (PSV) cm/sec ----- Right CCA: 97 ----- Right ICA: 89 ----- Right ECA: 71 ICA/CCA ratio: 0.9 RIGHT: End Diastole cm/sec ----- Right CCA: 21 ----- Right ICA: 25 ----- Right ECA: 19 LEFT: Peak Systolic Velocity (PSV) cm/sec ----- Left CCA: 91 ----- Left ICA: 80 ----- Left ECA: 95 ICA/CCA ratio: 0.9 LEFT: End Diastole cm/sec ----- Left CCA: 20 ----- Left ICA: 25 ----- Left ECA: 25 VERTEBRALS (direction of flow): Right Vertebral: Antegrade Left Vertebral: Antegrade MEDICAL TECHNOLOGIST NOTES: No elevated velocities or significant stenosis. IMPRESSION: No ultrasound evidence for hemodynamically significant stenosis of the bilateral visualized carotid a rterial systems. Criteria for Assigning % of Stenosis / Diameter reduction (Estimation based on the indirect measurements of the internal carotid artery velocities (ICA PSV). 1. Normal (no stenosis)=ICA PSV < 125 cm/s: ratio < 2.0: ICA EDV<40 cm/s. 2. Less than 50% stenosis=ICA PSV < 125 cm/s: ratio < 2.0: ICA EDV<40 cm/s. 3. 50 to 69% stenosis=ICA PSV of 125 to 230 cm/s: ration 2.0 ? 4.0: ICA EDV 40-100 cm/s. 4. Greater than 70% stenosis to near occlusion= ICA PSV > 230 cm/s: ratio > 4.0: ICA EDV > 100 cm/s. 5. Near occlusion= ICA PSV velocities may be low or undetectable: variable ratio and ICA EDV. 6. Total occlusion=unable to detect flow.
== END | disposition home or self-care (01) ==
LOC: RADUSWWP 04-26 13:30
PROVIDERS: ATTEND Internal Medicine
DX: I25.10 Atherosclerotic heart disease of native coronary artery without angina pectoris (principal); I65.23 Occlusion and stenosis of bilateral carotid arteries
CPT/HCPCS: 93306; 93880

== ENCOUNTER → 2025-03-05 | Outpatient (CLI) | payer MEDICARE | END | disposition home or self-care (01) | LOC: LABWHC1 11:13 | DX: Z01.812 Encounter for preprocedural laboratory examination (principal) | CPT/HCPCS: 36415; 87070; 93005 ==

== ENCOUNTER → 2025-03-19 | Outpatient (CLI) | payer MEDICARE ==
[2025-03-19 07:54] LABS: INR 1.5 (<1.2); Partial Thromboplastin Time 23.9 sec (22.0-30.0); Prothrombin Time 15.5 sec (10.0-12.5)
== END | disposition home or self-care (01) ==
LOC: LABWHC1 06:57
PROVIDERS: ATTEND Internal Medicine
DX: Z01.812 Encounter for preprocedural laboratory examination (principal)
CPT/HCPCS: 36415; 85610; 85730